=== PATIENT | female | born 1995 | race Hispanic/Latino ===

== ENCOUNTER 2017-11-17 06:03 | Inpatient (IN) | payer OTHER ==
[~2017-11-17] VITALS: Ht 160 cm; Wt 63.5 kg
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
[2017-11-17 06:30] LABS: ABSOLUTE BASOPHIL COUNT 0 /CUMM (0.0-0.2); ABSOLUTE EOSINOPHIL COUNT 0 /CUMM (0.0-0.7); ABSOLUTE LYMPH COUNT 1.6 /CUMM (1.2-3.4); ABSOLUTE MONOCYTE COUNT 0.5 /CUMM (0.10-0.60); BASOPHIL % 0.5 % (0.0-2.0); EOSINOPHIL % 0.3 % (0-5); GRANULOCYTE % 78.6 % (42.2-75.2); MEAN CORPUSCULAR HGB 28.7 PG (27.0-31.0); MEAN CORPUSCULAR HGB CONC 33.8 G/DL (33.0-37.0); MEAN CORPUSCULAR VOLUME 85.1 FL (81.0-99.0); MEAN PLATELET VOLUME 8.3 FL (7.4-10.4); PLATELET COUNT 322 /CUMM (130-400); RBC DISTRIBUTION WIDTH 14.6 % (11.5-14.5); RED BLOOD CELL CT 4.71 /CUMM (4.20-5.40); WHITE BLOOD CELL COUNT 10.1 /CUMM (4.8-10.8)
--- NOTE | 2017-11-17 11:09 | CT SCAN REPORT ---
EXAMINATION: CT HEAD WITHOUT CONTRAST CLINICAL INFORMATION: Altered mental status COMPARISON: None. TECHNIQUE: Contiguous axial imaging was performed from the skull base to vertex without intravenous contrast. DLP: 600 mGy-cm. FINDINGS: There is no evidence of acute intracranial hemorrhage or territorial infarction. No abnormal mass effect or midline shift is seen. Todd to white matter differentiation is well preserved. No extra-axial fluid collections are identified. No hydrocephalus. No significant volume loss. There is no abnormal attenuation within the brain parenchyma. The osseous structures and soft tissues are normal. The mastoid air cells and visualized portions of the paranasal sinuses are well aerated. IMPRESSION: No acute intracranial pathology.
--- NOTE | 2017-11-17 16:20 | ED PSYCH CRISIS CONSULTATION ---
See Addendum Crisis Consult Basic Assessment Date of Consult: 11/17/17 Responsible Person/Accompanied By: with family Insurance Authorization: Insurance #1: Insurance name: SELF-PAY Phone number: Policy number: Group number: Authorization number: ED Provider: Patient's ED Provider: Adolfo Palma MD Primary Care Physician: Patient's PCP: Patient Has No Primary Care Dr PCP's Phone Number: Current Psychiatrist: None Chief Complaint: Altered Mental Status Patient's Quote: "they are not my real parents" Present Illness: Pt is a 22 year old female arriving to ER for "altered mental status", pt was oriented to time and date, she did not know what hospital she was in. 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 In evaluating the pt she offers "these are not my real parents, and I'm scared". She becomes tearful, she will not answer many more questions, she has a strong gaze in which she appears to be looking through you. She will not answer any questions regarding mental health or hearing voices, hallucinations or whether she wants to harm herself. She does state she is "sick of all these fake people at work". Pt has been employed for over a year at a local [employer] in [place], she recently met a boy and they began dating, although pt told her sister he recently cheated on her. They began smoking cannabis the family refers to it as "gorilla", this may be what lead her to become paranoid, and guarded, along with possibly having a first psychotic break. I explained the inpatient hospitialization would benefit her as a means to hash this out thouroughly. The evaluation continued with her sister and Mother who state this is not how Christelle usually acts, and that last night and this morning she has been acting different, becoming aggressive, stating "you are all fake, I have a 3rd eye and can see what you are thinking, and I have superpowers", her sister also states she had been asking her "are you on my side?, do you think my boyfriend is on my side?". Pt will be placed on a PEC, as she is gravely disabled at this point. Family was made aware. Completed C-SSRS in chart/ for reference. Patient's Address: [address] [place] [address] Other Phone Number: Who Do You Live With? Family Family/Informants Interviewed: Spoke with family, they are concerned for her saftey/ state of mind Allergies - Coded Allergies: No Known Allergies (11/17/17) Current Medications - No Known Home Medications Laboratory Results: Laboratory Tests 11/17/17 0910: Lactic Acid 0.7 11/17/17 0719: Urine Opiates Screen < 100, Methadone Screen < 40, Barbiturate Screen < 60, Ur Phencyclidine Scrn < 6.00, Amphetamines Screen < 100, U Benzodiazepines Scrn < 85, Urine Cocaine Screen < 50, Urine Cannabis Screen > 80.00 H, Urine Color STRAW, Urine Clarity CLEAR, Urine pH 6.0, Ur Specific [place] 1.010, Urine Protein NEG, Urine Ketones 15 H, Urine Nitrite NEG, Urine Bilirubin NEG, Urine Urobilinogen 0.2, Ur Leukocyte Esterase NEG, Ur Microscopic EXAM NOT REQUIRED, Urine Hemoglobin NEG, Urine Glucose NEG 11/17/17 0620: Anion Gap 19 H, Estimated GFR > 60, BUN/Creatinine Ratio 6.7 L, Glucose 139 H , Lactic Acid 4.3 H, Calcium 9.8, Total Bilirubin 0.8, AST 31, ALT 26, Alkaline Phosphatase 79, Creatine Kinase 369 H, Total Protein 8.1, Albumin 4.9, Globulin 3.2, Albumin/Globulin Ratio 1.5, TSH &T3 &Free T4 Intrp 1.480, Total Beta HCG NEGATIVE, CBC w Diff NO MAN DIFF REQ, RBC 4.71, MCV 85.1, MCH 28.7, MCHC 33.8, RDW 14.6 H, MPV 8.3, Gran % 78.6 H, Lymphocytes % 15.4 L, Monocytes % 5.2, Eosinophils % 0.3, Basophils % 0.5, Absolute Granulocytes 8.0 H, Absolute Lymphocytes 1.6, Absolute Monocytes 0.5, Absolute Eosinophils 0, Absolute Basophils 0, Serum Alcohol < 10.0 Microbiology 11/18 619 BLOOD: Blood Culture - RECD 11/17 605 BLOOD: Blood Culture - ORD Past History Past Medical History Neurological: NONE EENT: NONE Cardiovascular: NONE Respiratory: NONE Gastrointestinal: NONE Hepatic: NONE Renal: NONE Musculoskeletal: NONE Psychiatric: NONE Endocrine: NONE Blood Disorders: NONE Cancer(s): NONE SHIP LINER/Reproductive: NONE Past Surgical History Surgical History: non-contributory Psychosocial History Strengths/Capabilities: employed, family Psychiatric Treatment History Psych Treatment Psychiatric Treatment No Diagnosis by History: "tricotillmania" "depression" Substance Use/Abuse History Drug Use/Abuse Substances Used/Abused Yes Substance Used/Abused Marijuana First Use 20 Last Used 20 How much used/taken unknown How often unknown For how long few months Route of use inhale Substance Abuse Treatment Substance Abuse Treatment Past Substance Abuse [place] No Current Mental Status Mental Status Orientation: Confused Affect: Blunted, Depressed, Inappropriate Speech: Delayed, Evasive Neuro-vegetative: Helpless, Sleep Disturbance Appearance Appearance- Dress/Hygiene: unkempt Behaviors Thought Process: Disorganized Thought Content: Paranoid Memory: WNL Insight: Poor SI/HI Risk Assessment Past Suicidal Ideation/Attempts No Current Suicidal Ideation/Att No Past Homicidal Ideation/Att: No Current Homicidal Ideation/Attempts No Degree of Intent: will not answer Gravely Disabled: Inability, Poor Judgment Risk Factors: age (under 24/over 65), high anxiety/distress, poor impulse control Lethality Ratin PTSD Checklist PTSD Done? 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 Departure Disposition Psych Medical Clearance Date: 11/17/17 Medically Cleared at: 1630 Time Started: 1630 Time Ended: 173 Psychiatrist Consulted: Melody Mejia MD Date Disposition Established: 11/17/17 Time Disposition Established: 1629 Plan for Disposition - Modality: Inpatient Psychiatry Facility: [facility] Follow-up Appt Date: 11/17/17 Follow-Up Appt Time: 1652 Contact: [facility]PS Telephone: [phone] Rationale for Disposition: Pt is having psychotic symptomology, and has not had any significant treatment in the past, she is unsafe and lacking judgement. Dr. Mejia to admit pt to [facility] for stability. Type of IP Admission: PEC Referrals Patient Has No Primary Care Dr (PCP/Family)
--- NOTE | 2017-11-17 17:02 | IP CRISIS DIAG ASSESS PSYCH ---
Diagnostic Assessment Basic Assessment Insurance Authorization: Insurance #1: Insurance name: SELF-PAY Phone number: Policy number: Group number: Authorization number: [id number] Primary Care Physician: Patient's PCP: Patient Has No Primary Care Dr PCP's Phone Number: Patient's Quote: "they are not my real parents" Present Illness: Pt is a 22 year old female arriving to ER for "altered mental status", pt was oriented to time and date, she did not know what hospital she was in. 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 In evaluating the pt she offers "these are not my real parents, and I'm scared". She becomes tearful, she will not answer many more questions, she has a strong gaze in which she appears to be looking through you. She will not answer any questions regarding mental health or hearing voices, hallucinations or whether she wants to harm herself. She does state she is "sick of all these fake people at work". Pt has been employed for over a year at a [employer] in [place], she recently met a boy and they began dating, although pt told her sister he recently cheated on her. They began smoking cannabis the family refers to it as "gorilla", this may be what lead her to become paranoid, and guarded, along with possibly having a first psychotic break. I explained the inpatient hospitialization would benefit her as a means to hash this out thouroughly. The evaluation continued with her sister and Mother who state this is not how Christelle usually acts, and that last night and this morning she has been acting different, becoming aggressive, stating "you are all fake, I have a 3rd eye and can see what you are thinking, and I have superpowers", her sister also states she had been asking her "are you on my side?, do you think my boyfriend is on my side?". Pt will be placed on a PEC, as she is gravely disabled at this point. Family was made aware. Completed C-SSRS in chart/ for reference. Patient's Address: [address] [place] [address] [place] [address] Other Phone Number: Who Do You Live With? Family Feel Safe Where You Live? No Feel Safe in Your Relationship No If No, Please Elaborate: "everyone is fake" Marital Status: single Do You Have Children? No Primary Language? Ugandan Language(s) Spoken At Home: Tajik, Ugandan Family/Informants Interviewed: Spoke with family, they are concerned for her saftey/ state of mind Allergies - Coded Allergies: No Known Allergies (11/17/17) Current Medications - No Known Home Medications Consequences of Psych Med Use: n/a Lab Results: Laboratory Tests 11/17/17 0910: Lactic Acid 0.7 11/17/17 0719: Urine Opiates Screen < 100, Methadone Screen < 40, Barbiturate Screen < 60, Ur Phencyclidine Scrn < 6.00, Amphetamines Screen < 100, U Benzodiazepines Scrn < 85, Urine Cocaine Screen < 50, Urine Cannabis Screen > 80.00 H, Urine Color STRAW, Urine Clarity CLEAR, Urine pH 6.0, Ur Specific [place] 1.010, Urine Protein NEG, Urine Ketones 15 H, Urine Nitrite NEG, Urine Bilirubin NEG, Urine Urobilinogen 0.2, Ur Leukocyte Esterase NEG, Ur Microscopic EXAM NOT REQUIRED, Urine Hemoglobin NEG, Urine Glucose NEG 11/17/17 06: Anion Gap 19 H, Estimated GFR > 60, BUN/Creatinine Ratio 6.7 L, Glucose 139 H , Lactic Acid 4.3 H, Calcium 9.8, Total Bilirubin 0.8, AST 31, ALT 26, Alkaline Phosphatase 79, Creatine Kinase 369 H, Total Protein 8.1, Albumin 4.9, Globulin 3.2, Albumin/Globulin Ratio 1.5, TSH &T3 &Free T4 Intrp 1.480, Total Beta HCG NEGATIVE, CBC w Diff NO MAN DIFF REQ, RBC 4.71, MCV 85.1, MCH 28.7, MCHC 33.8, RDW 14.6 H, MPV 8.3, Gran % 78.6 H, Lymphocytes % 15.4 L, Monocytes % 5.2, Eosinophils % 0.3, Basophils % 0.5, Absolute Granulocytes 8.0 H, Absolute Lymphocytes 1.6, Absolute Monocytes 0.5, Absolute Eosinophils 0, Absolute Basophils 0, Serum Alcohol < 10.0 Microbiology 11/18 619 BLOOD: Blood Culture - RECD 07/03 0606 BLOOD: Blood Culture - ORD Toxicology Screen Completed? Yes Results: positive Symptoms of Use: unsure Past History Past Medical History Medical History: None/Denies Past Surgical History Surgical History none Abuse/Trauma History Trauma History/Current Trauma: unknown Legal History Current Legal Status: none Psychosocial History Strengths/Capabilities: employed, family Psychiatric Treatment History Psych Treatment Psychiatric Treatment No Diagnosis by History: "tricotillmania" "depression" Risk Factors: age (under 24/over 65), high anxiety/distress, poor impulse control Substance Use/Abuse History Drug Use/Abuse minimum 12mo Hx Substances Used/Abused Yes Substance Used/Abused Marijuana First Use 20 Last Used 20 How much used/taken unknown How often unknown For how long few months Route of use inhale Substance Abuse Treatment Substance Abuse Treatment Past Substance Abuse [place] No Sexual History Sexual Orientation Heterosexual Sexual Concerns: unknown/ bf may have syphillis and cheated on her per sister Education History Highest Level of Education: high school/GED Preferred Learning Style: visual Current Mental Status Mental Status Orientation: Confused Affect: Blunted, Depressed, Inappropriate Speech: Delayed, Evasive Neuro-vegetative: Helpless, Sleep Disturbance Appearance Appearance- Dress/Hygiene: unkempt Behaviors Thought Process: Disorganized Thought Content: Paranoid Memory: WNL Insight: Poor SI/HI Risk Assessment - Minimum 6mo History- Past Suicidal Ideation/Attempts No Current Suicidal Ideation/Att No Past Homicidal Ideation/Att: No Current Homicidal Ideation/Attempts No Degree of Intent: will not answer Danger To: Others Gravely Disabled: Inability, Poor Judgment Risk Factors: age (under 24/over 65), high anxiety/distress, poor impulse control Lethality Ratin Needs/Init [place] Plan/Goals: Safety inpatient milieu med evaluation individual, group, family treatment AUDIT-C Questionnaire: AUDIT-C Questionnaire: Response Value ETOH use in the past year Never 0 # drinks typical/day Doesn't Drink 0 6 or > drinks per occasion Never 0 Total 0 DSM5/PS Stressors/Medical Prob Diagnosis' (DSM 5, Stressors, Medical): 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
[2017-11-17 21:42] VITALS: BP 112/55
[2017-11-18 09:10] VITALS: BP 141/63
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
--- NOTE | 2017-11-18 11:39 | SOCIAL WORKER PROG NOTE PSYCH ---
Social Work Progress Note Progress Note SW attempted to complete pt psycho-social hx but unable at this time due to pt continued delusional thought process and inability to answer questions. Will attempt again when clearer.
[2017-11-18 16:08] VITALS: BP 125/90
[2017-11-18 19:41] VITALS: BP 132/70
[2017-11-19 07:43] VITALS: BP 124/71
--- NOTE | 2017-11-19 10:04 | History & Physical ---
General Information and HPI MD Statement: I have seen and personally examined MARIZOL MOELLER and documented this H&P. The patient is a 22 year old F who presented with a patient stated chief complaint of "you are not my real parents". Source of Information: family Exam Limitations: unable to give history History of Present Illness: 22-year-old female has had increased delusions and aggressive behavior over 2 days. She has been pacing not sleeping feeling paranoid about her boyfriend and family seems psychotic. 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 Home ETOH Use: UNKNOWN Illicit Drug Use: marijuana Review of Systems Review of Systems Constitutional: Reports: see HPI. Exam & Diagnostic Data Last 24 Hrs of Vital Signs/I&O Vital Signs Date Time Temp Pulse Resp B/P B/P Pulse O2 O2 Flow FiO2 Mean Ox Delivery Rate 11/19 0643 97.1 92 124/71 / 1941 98.6 92 132/70 / 1608 96 125/90 Physical Exam General Appearance Alert, Oriented X3, No Acute Distress Skin No Breakdown HEENT PERRLA, EOMI, Mucous Membr. moist/pink Neck Supple, No JVD, No thryomegaly, +2 Carotid Pulse wo Bruit, No LAD Lymphatic Axillary nl, Cervical nl Cardiovascular Regular Rate, No Murmurs Lungs Clear to Auscultation, Normal Air Movement Abdomen Normal Bowel Sounds, Soft, No Tenderness Neurological Exam Findings: Normal Gait, Normal Speech, Strength at 5/5 X4 Ext, Normal Tone, Sensation Intact, Cranial Nerves 3-12 NL, Reflexes 2+ Cranial Nerves II through XII: Intact Extremities No Cyanosis, No Edema, Normal Pulses Vascular Normal Pulses, Pulses Symmetrical Last 24 Hrs of Labs/Bryant: Laboratory Tests 11/19/17 0635: Hemoglobin A1c 5.3, Triglycerides 45, Cholesterol 144, LDL Cholesterol, Calc 73, HDL Cholesterol 62 H, Cholesterol/HDL Ratio 2 11/18/17 0615: Glucose 62 L, Vitamin B12 481, Folate > 20.0 H, TSH 0.717, Free T4 1.69, Thyroxine (T4) 9.3 Laboratory Tests 11/19/17 0635: Hemoglobin A1c 5.3, Triglycerides 45, Cholesterol 144, LDL Cholesterol, Calc 73, HDL Cholesterol 62 H, Cholesterol/HDL Ratio 2 Assessment/Plan As Ranked By This Provider Problem List: 1. Acute delirium Miscellaneous Miscellaneous Documentation Attending Case Discussed With: Roberto WINSTON,Melody Primary Care Physician: Patient Has No Primary Care Dr Patient sees these Specialists Psychiatry Level of Patient Care: Hao Consults Needed: Consulting Specialty: Psychiatry Consulting Physician: Melody Mejia MD Reason for Consult: delirium,psychosis
[2017-11-19 12:03] VITALS: BP 149/85
--- NOTE | 2017-11-19 13:07 | CP SOUTH PROGRESS NOTE PSYCH ---
Psych (Inpt) Progress Note Progress Note Laboratory Tests 11/19 06 Chemistry Hemoglobin A1c (4.2 - 5.8 %) 5.3 Triglycerides (<150 mg/dL) 45 Cholesterol (<200 MG/DL) 144 LDL Cholesterol, Calc (65 - 129 mg/dL) 73 HDL Cholesterol (40 - 60 mg/dL) 62 H Cholesterol/HDL Ratio (0.00 - 4.23 %) 2 Vital Signs Date Time Temp Pulse Resp B/P B/P Pulse O2 O2 Flow FiO2 Mean Ox Delivery Rate 11/19 1203 108 149/85 11/19 0743 97.1 92 124/71 11/18 1941 98.6 92 132/70 11/18 1608 96 125/90 Mental Status Examination: The patient was alert and oriented to time, place, and person. She was talkative with mild pressure. She reported that she has been having racing thoughts. She was calm and cooperative. She showed normal psychomotor activity , no agitation, and no psychomotor retardation She denied feeling hopeless or worthless, she denied wishing and denied thoughts of suicide. She denied having violent thoughts or thoughts of homicide. She denied hallucinations today or yesterday but did acknowledge that she was having some auditory hallucinations before her arrival to the emergency room. She continues to have and posterior delusions/Capgras (thinking that her mother, her sister, and her father were replaced by different versions of Amanda Thomas, not a celebrity but a Amanda Thomas that works with patient) She also has a thought disorder and having difficulty organizing her thoughts. It is also difficult to follow her train of thought. grossly intact, has some recollection of where she was brought to the hospital, personal history Assessment: A 22 year old woman with recent onset bizarre delusions, behavior; aggression; in context of drug use vs first psychotic episode. She is referential, illogical and paranoid. She is responsive to redirection and has not been violent or aggressive on the unit, and though does not need a sitter at this time, will likely need reality testing and redirection. 

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
--- NOTE | 2017-11-19 15:50 | SOCIAL WORKER PROG NOTE PSYCH ---
Social Work Progress Note Progress Note I Richardson Sanchez POWDER COATER international manager met with Christelle this afternoon to complete her social history, She was in bed but was cooperative, calm and engaged when meeting. Christelle is still displaying delusional thinking as she believes she was kidnapped. She expressed not trusting her family and feels unsafe around them. She called her mom a "witch." She was focused on seeing her boyfriend and leaving the hospital. When asked about doing follow up with a mental health service like [facility] she was agreeable to it but wanted something in [place] because she has no intention to live with her parents. I explored insurance coverage with her which she doesn't have any and claims she was denied when she applied. The above information was documented by Richardson Sanchez POWDER COATER international manager and signed by Yina Alfaro LCSW.
[2017-11-19 19:53] VITALS: BP 137/81
[2017-11-20 08:08] VITALS: BP 158/71
[2017-11-20 12:45] VITALS: BP 142/80
--- NOTE | 2017-11-20 13:37 | CP SOUTH PROGRESS NOTE PSYCH ---
Psych (Inpt) Progress Note Progress Note Mental Status Examination: The patient was alert and oriented to time, place, and person. She was talkative with mild pressure. She reported that she has been having racing thoughts. She was he was anxious and perseverating about that "she does not have syphilis." She showed some agitation this morning around 8:30 AM She denied feeling hopeless or worthless, denied wishing and denied thoughts of suicide. She denied having violent thoughts or thoughts of homicide. She denied hallucinations since her arrival to the unit (acknowledged that she was having some auditory hallucinations before her arrival to the emergency room). She continues to have imposter delusions/Capgras (thinking that her mother, her sister, and her father were replaced by different versions of Amanda Thomas, not the celebrity but a Amanda Thomas who works with patient). She also has a thought disorder and having difficulty organizing her thoughts. It is also difficult to follow her train of thought. Assessment: Christelle is a 22-year old with recent onset of delusions, behavior; aggression; in context of drug use vs first psychotic episode. She was illogical and paranoid. Since her admission to the inpatient psychiatric unit on 11/17/2017, she has continues to continue to have delusions of impostors replacing her mother father and sister, perseverating about syphilis perseverating about Amanda Thomas coworker was inhabiting her mother's body and may be also had father and sister. 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
--- NOTE | 2017-11-20 13:56 | SOCIAL WORKER PROG NOTE PSYCH ---
Social Work Progress Note Progress Note I Richardson Sanchez met with Christelle this afternoon to check in. She was engaging with peers on the unit playing cards prior to meeting with her. She reports being in a good mood, sleeping and eating well. Christelle and I had a discussion about who came to visit her. The visitors were her boyfriend, boyfriend's family , friends, and her parents that she still claims are not her parents. She believes her parents are being and acting fake. I inquired further about when she applied for insurance and was denied she said it was earlier this year and her parents applied not her. She continues to have delusions about her parents. She is unsure why the paper her boyfriend gave her with his number on it disappears. She suspects nursing took it and can not understand why else it would be missing. 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 I explored more about what brought her in from her perspective and she believes she drank too much water, smoked some, weed and her parents not being her real parent led her here. She expressed the weed to be a method to help her cope with stressors. I explored to see if she used other coping skills but she has not. She report socializing and going out with friends as something she enjoys doing. I asked whether she thought there was a down side to using weed which she did not. When asked who she goes to for support she answered her boyfriend. She was not willing to sign a release for her parents. The above information is written by Richardson Sanchez HIV NURSE Bacteriologist Industrial and signed by Yina Alfaro TRANSMISSION BUILDER.
[2017-11-20 15:38] VITALS: BP 147/61
--- NOTE | 2017-11-20 16:39 | SOCIAL WORKER PROG NOTE PSYCH ---
Social Work Progress Note Progress Note Spoke to Inga of [facility] for concurrent inpatient authorization. [facility] ID# [id number] Authorization # [id number] 11/20-11/23 Review Date 11/24
--- NOTE | 2017-11-20 16:53 | SOCIAL WORKER PROG NOTE PSYCH ---
Social Work Progress Note Progress Note Introduced myself to Christelle who had requested to speak with me. She went on to talk about how the people coming to see her aren't who they say they are. She stated she was adopted and her parents aren't her parents. She was also paranoid about some of the staff here not being who they say they are. She believes everyone, including me is conspiring against her. She thinks we all know something about what's going on at [facility] and we aren't telling her. I told her that I am not aware of anything. She didn't believe me. She also kept talking about not having Syphilis and people are thinking or saying she does. She believed that people in the room were listening to what was going on through the bueno and devices in the room. I tried to focus on redirecting her attention to help her feel safe. She stated she doesn't want to go to her room and she wants to leave the hospital. The only person she would agree to have in for a meeting was her boyfriend Osiel. She signed a release for him. She couldn't remember his phone number. I told her she wasn't leaving today and that we needed to have a family meeting. She got a little irritated about that, but was redirectable.
[2017-11-20 19:36] VITALS: BP 136/77
[2017-11-21 09:54] VITALS: BP 119/73
--- NOTE | 2017-11-21 09:56 | CP SOUTH PROGRESS NOTE PSYCH ---
Psych (Inpt) Progress Note Progress Note Laboratory Tests 11/21 Serology RPR Titer/FTA Pending Vital Signs Date Time Temp Pulse B/P O2 FiO2 11/21 0954 98.6 96 119/73 11/20 1936 98.5 100 136/77 11/20 1538 108 147/61 11/20 1245 100 142/80 Mental Status Examination: Patient remains paranoid and thinking that everybody is lying to her, she continues also to experience the imposter delusions. I spoke to her mom and her sister while she was in the room with me. The patient first attempted to interpret for her mother than her sister joined the conversation and I was able to speak to her since she speaks very good Barb[place] The patient was alert and oriented to time, place, and person. Although she denied hallucinations since her arrival to the unit, she seemed to be responding to internal stimuli during the interview She continues to have imposter delusions/Capgras (thinking that her mother, her sister, and her father were replaced by different versions of Amanda Thomas, not the celebrity but a Amanda Thomas who works with patient). She also has a thought disorder and having difficulty organizing her thoughts. It is also difficult to follow her train of thought. She denied feeling hopeless or worthless, denied wishing , denied thoughts of suicide. She denied having violent thoughts or thoughts of homicide. After the morning interview which lasted 20 minutes, the patient insisted on talking to me every single time she saw me on the unit and then entered the office uninvited and refused to leave and security had to be called in to assist getting her out of the office Assessment: Christelle is a 22-year old with recent onset of delusions Since her admission to the inpatient psychiatric unit on 11/17/2017, she continues to have delusions of impostors replacing her mother father and sister, perseverating about syphilis perseverating about Amanda Thomas coworker was inhabiting her mother's body and may be also had father and sister. Patient also continues to be paranoid pretty much about everybody accusing me of the nurses of lying to her and hiding something Diagnoses: Unspecified psychotic disorder Rule out substance induced psychotic disorder r/o schizophreniform Treatment Plan: Increase risperidone to 3 mg at bedtime Continue all other medications unchanged
[2017-11-21 12:03] VITALS: BP 151/76
[2017-11-21 15:52] VITALS: BP 149/85
[2017-11-21 19:04] VITALS: BP 135/81
[2017-11-22 08:15] VITALS: BP 151/73
--- NOTE | 2017-11-22 08:18 | CP SOUTH PROGRESS NOTE PSYCH ---
Psych (Inpt) Progress Note Progress Note Vital Signs Date Time Temp Pulse B/P 11/22 0815 97.3 88 151/73 11/21 1904 97.5 94 135/81 11/21 1552 98 149/85 Mental Status Examination: Patient remains paranoid but much less than yesterday. For example, she did not accuse me of lying to her and she did not have any ideas of reference during the interview. She did not mention anything about the nurses lying to her today, which was the theme yesterday. Her delusions regarding her family being replaced by imposters are less intense as they have changed to strong suspicions, which is also a change from yesterday where she was convinced 100% that her family members were replaced by an impostor cold Amanda Thomas Also today she did not bring up syphilis and she reported that she knows that she does not have syphilis. The patient was alert and oriented to time, place, and person. She continues to deny hallucinations She also has a thought disorder and having difficulty organizing her thoughts. She denied feeling hopeless or worthless, denied wishing , denied thoughts of suicide. She denied having violent thoughts or thoughts of homicide. Assessment: Christelle is a 22-year old with recent onset of delusions of impostors replacing her mother father and sister. Today, the patient is showing an improvement in his delusions as evidenced by her saying that she is not 100% sure today that her family was replaced by imposters but that she is suspicious that there may have been. This is a relative improvement compared to yesterday. She is also a little bit more coherent. And she is no longer perseverating or delusional about syphilis. She is also less paranoid about me and the staff on the unit. She is showing good better behavioral control Diagnoses: Unspecified psychotic disorder Rule out substance induced psychotic disorder r/o schizophreniform disorder Treatment Plan: Continue risperidone 3 mg at bedtime Continue all other medications unchanged r/o schizophreniform Treatment Plan: Increase risperidone to 3 mg at bedtime Continue all other medications unchanged
[2017-11-22 12:11] VITALS: BP 134/80
[2017-11-22 15:59] VITALS: BP 136/69
[2017-11-23 07:55] VITALS: BP 141/81
--- NOTE | 2017-11-23 08:51 | CP SOUTH PROGRESS NOTE PSYCH ---
Psych (Inpt) Progress Note Progress Note Laboratory Tests 11/23 0635 Sodium (137 - 145 mmol/L) 141 Potassium (3.5 - 5.1 mmol/L) 4.0 Chloride (98 - 107 mmol/L) 99 Carbon Dioxide (22 - 30 mmol/L) 25 Anion Gap (5 - 16) 17 H BUN (7 - 17 mg/dL) 7 Creatinine (0.5 - 1.0 mg/dL) 0.6 Estimated GFR (>60 ml/min) > 60 BUN/Creatinine Ratio (7 - 25 %) 11.7 Vital Signs Date Time Temp Pulse Resp B/P B/P Pulse O2 O2 Flow FiO2 Mean Ox Delivery Rate 11/23 1218 104 133/74 11/23 0755 97.6 98 141/81 11/22 1559 108 136/69 Mental Status Examination: The patient showed some evidence of akathisia in her lower extremities during the interview, she also looked restless, she reported feeling anxious The patient was alert and oriented to time, place, and person. less paranoid about her parents, she says she misses home and her family imposter delusions are now just suspicions, continues to deny hallucinations more organized/less thought disordered, denied feeling hopeless or worthless, denied wishing , denied thoughts of suicide. She denied having violent thoughts or thoughts of homicide. Assessment: gradual improvement in her delusions She is showing better behavioral control No thoughts of suicide, no thoughts of violence and no thoughts of homicide Diagnoses: Unspecified psychotic disorder Rule out substance induced psychotic disorder r/o schizophreniform disorder Treatment Plan: Reduce risperidone to 2 mg at bedtime due to akathisia Patient encouraged to use the Ativan as needed to manage both her anxiety as well as akathisia
[2017-11-23 12:18] VITALS: BP 133/74
--- NOTE | 2017-11-23 17:13 | SOCIAL WORKER PROG NOTE PSYCH ---
Social Work Progress Note Progress Note Christelle apparently called her family in for family meeting today without notifying us. Her parents and her Sister showed up on the unit this afternoon. I asked Christelle to sign a release for her family, which she did. She got a little paranoid about her Mother being on the release and stated she doesn't trust her because "she changes" and we'll see how she is today when I see her. Christelle's parents are monolingual [place] Citizen, so her Sister Richardson had to translate. I explained that normally I reach out to family to schedule a family meeting, but due to not arranging this myself I was unable to get the [employer] translation system. Richardson interpreted during the meeting. We explained that Christelle is continuing to have some thoughts that her family is not really her family, particularly suspicious of her Mom. During the meeting Christelle acknowledged that her family was her family, but believed that her Mother was a witch and that she does bad things. Family hx was gathered by Dr. Cruz during the meeting. We confirmed it was a normal and that developementally she was fine. There is no hx of mental health or suicides in the family. Cannabis use started around High School according to her Sister and that use was not that heavy. During the meeting Christelle had a delusional belief that the doctor was her boss at [facility]'s named "Vinayak." When challenged by her Sister who stated Vinayak was black, she said "people can change." She also thought that I was to him. When the meeting ended, Christelle thought she was going to be able to go home. We explained that she was not going home today. She got very tearful and refused to leave the office for some time. She was coaxed into leaving eventually after about 15 minutes. She thought her family was paid off by someone and that's why she couldn't leave today.
[2017-11-23 20:01] VITALS: BP 134/74
[2017-11-24 07:50] VITALS: BP 140/82
--- NOTE | 2017-11-24 08:57 | CP SOUTH PROGRESS NOTE PSYCH ---
Psych (Inpt) Progress Note Progress Note Treatment team (JANETH, RN, Group and Activities Therapist, and psychiatrist) discussed Pt.'s progress, treatment plan, and aftercare plans. Vital Signs Date Time Temp Pulse B/P 11/24 0750 97.7 132 140/82 Mental Status Examination: Christelle denied feeling hopeless or worthless, denied wishing , and denied thoughts of suicide. She denied having violent thoughts or thoughts of homicide. Christelle continues to have paranoid delusions about different people being replaced by imposters. continues to deny hallucinations more coherent /organized thoughts (despite the delusional content) did not have akathisia today, she reported feeling anxious The patient was alert and oriented to time, place, and person. Assessment: gradual improvement in her delusions She is showing better behavioral control No thoughts of suicide, no thoughts of violence and no thoughts of homicide Diagnoses: Unspecified psychotic disorder Rule out substance induced psychotic disorder r/o schizophreniform disorder Treatment Plan: Continue same treatment plan Patient encouraged to use the Ativan as needed to manage both her anxiety as well as akathisia
[2017-11-24 12:26] VITALS: BP 142/79
--- NOTE | 2017-11-24 15:24 | SOCIAL WORKER PROG NOTE PSYCH ---
See Addendum Social Work Progress Note Progress Note Christelle met with me this afternoon. She told me that she is with a big smile. I asked how she knew this information? She said her and her boyfriend found out at "the place." I asked what place? She couldn't say and then said she just knew because she senses it. I told her she could have a test. She refused. I told it would be best if it could be confirmed with a test. She still refused and said "I'm happy." I asked if she was going to tell her family this information? She said she planned to when she saw them tonladarius. She also continues to talk about not telling anyone about "what we do here." I asked what she was referring to? She didn't say. She asked me if I was to Rich? I told her I was not. She stated she was appreciative of everything we have done for her here. She then went to spirituality group. Christelle's test was negative in the ER. Informed nursing that she may inform her family of a preganancy.
[2017-11-24 16:10] VITALS: BP 132/78
--- NOTE | 2017-11-24 16:26 | SOCIAL WORKER PROG NOTE PSYCH ---
Social Work Progress Note Progress Note Determination Status: PENDED The services requested require additional review. You will be contacted regarding the status of this request if further information is needed. An authorization decision will be made within the required timeframes and details of that decision may be found under the member's authorization history. Member Name Member ID Member Subscriber Name Subscriber ID MARIZOL MOELLER [id number] MARIZOL MOELLER [id number] Pended Authorization # Client Authorization # Type of Request [id number] CONCURRENT Date of Admission/ Start of Services Requested From Submission Date 11/17/2017 11/24/2017 11/24/2017 Level of Service Type of Service Level of Care Type of Care INPATIENT/HLOC [facility]patient [facility] Reason Code P76 Provider Name & Address Provider ID Provider Alternate ID NPI # for Authorization MARGIE LUKE [id number] N/A [address] [facility] [id number] Message P76 Attached Documents There are no documents attached with this Authorization Request Document Title Document Description
[2017-11-24 20:21] VITALS: BP 130/65
[2017-11-25 08:15] VITALS: BP 147/75
--- NOTE | 2017-11-25 08:21 | CP SOUTH PROGRESS NOTE PSYCH ---
Psych (Inpt) Progress Note Progress Note Treatment team (JANETH, RN, Group and Activities Therapist, and psychiatrist) discussed pt.'s progress, treatment plan, and aftercare plans. Vital Signs Date Time Temp Pulse B/P 11/25 1215 98 138/77 11/25 0815 96.7 102 147/75 11/24 2020 98.8 104 130/65 Mental Status Examination: Christelle continues to have paranoid delusions about different people being replaced by imposters. Today was the first time that she acknowledged the presence of hallucinations, she acknowledged hearing the voice of her mom. This morning she was obsessing about being then in the afternoon she did not talk about it anymore. Christelle denied feeling hopeless or worthless, denied wishing , and denied thoughts of suicide. She denied having violent thoughts or thoughts of homicide. did not have akathisia today, she reported feeling anxious The patient was alert and oriented to time, place, and person. Assessment: The patient continues to have delusions and today she acknowledged for the first time having audio hallucinations hearing the voice of mom She is showing better behavioral control No thoughts of suicide, no thoughts of violence and no thoughts of homicide Diagnoses: Unspecified psychotic disorder Rule out substance induced psychotic disorder r/o schizophreniform disorder Treatment Plan: Continue same treatment plan Lorazepam 1 MG AT BEDTIME 11/23 2100 AC 11/24 Lorazepam 1 MG Q4P PRN 11/23 1500 AC 11/24 Risperidone 1 MG DAILY 11/24 09 AC 11/25 Risperidone 2 MG AT BEDTIME
[2017-11-25 12:15] VITALS: BP 138/77
[2017-11-25 16:01] VITALS: BP 139/65
--- NOTE | 2017-11-25 17:12 | SOCIAL WORKER PROG NOTE PSYCH ---
Social Work Progress Note Progress Note Christelle has been in groups today and social with peers. She is still under the belief that she is . She also stopped our conversation several times to ask me if I was Dr. Cruz's and if I was her friend Aleja. I told her this is one of our concerns and one of the reasons she is not ready to be discharged. She talked about her Mother quite a bit during our discussion. She believes her Mother needs to be on this unit and not her. She had some nice things to say about her Mom, but also shared alot of negative thoughts. She continues to think she's a witch and does bad things. She said her Mother has emotional problems and talks about killing herself when at home, but in public she presents differently. It also sounded like she thinks her Mom is having an affair. She mentioned a boyfriend that her Mother treats badly. She doesn't want these things disclosed to family. I asked how she felt about visiting with family? She said she wants to see her Mom and is okay with the idea that she needs to be here right now. She continues to say how much she appreciates the help and the kind staff here. Her family arrived around 4:45 for a visit. She approached me and said "should I tell them." I told her she should tell her family anything she feels comfortable with. She asked to speak with me again privately. I told her I couldn't meet right now and to have a nice visit with her family. She was suspicious of my actions and statements.
[2017-11-25 19:57] VITALS: BP 108/65
--- NOTE | 2017-11-26 07:22 | CP SOUTH PROGRESS NOTE PSYCH ---
Psych (Inpt) Progress Note Progress Note Treatment team (JANETH, RN, Group and Activities Therapist, and psychiatrist) discussed pt.'s progress, treatment plan, and aftercare plans. Mental Status & Behavior: Christelle continues to have paranoid delusions, continues to believe that people are "mean" and she thinks she knows what people are thinking audio hallucinations, she acknowledged hearing the voice of her mom. No delusions about today Christelle denied feeling hopeless or worthless, denied wishing , and denied thoughts of suicide. She denied having violent thoughts or thoughts of homicide. did not have akathisia today, she reported feeling anxious The patient was alert and oriented to time, place, and person. Assessment: The patient continues to have delusions and today she acknowledged for the first time having audio hallucinations hearing the voice of mom She is showing better behavioral control No thoughts of suicide, no thoughts of violence and no thoughts of homicide Diagnoses: Unspecified psychotic disorder Rule out substance induced psychotic disorder r/o schizophreniform disorder Treatment Plan: Continue same treatment plan Lorazepam 1 MG AT BEDTIME & 1 mg Q4P PRN anxiety Risperidone 1 MG DAILY & 2 MG AT BEDTIME Risperidone 2 MG AT BEDTIME
[2017-11-26 08:35] VITALS: BP 138/68
[2017-11-26 12:09] VITALS: BP 124/61
--- NOTE | 2017-11-26 15:10 | SOCIAL WORKER PROG NOTE PSYCH ---
Social Work Progress Note Progress Note I Richardson Sanchez approached Christelle in the kitchen to check in with her. She reported having stomach pain and holding her stomach. The patient informed nursing and they gave her deejay colt. Christelle had a good night last night and had visitors. The patient acknowledged seeing her parents last night. She discussed living at the apartment with them as an option for when she is discharged. I inquired about her thoughts in regards to employment since last time I spoke with her she mentioned wanting to work somewhere else. 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 She stated her delusional thought that "she is but not to tell anyone because it is a secret." She wanted to share this with her boyfriend when she goes home but is unsure if he would want to keep the baby. She feel supported by her family and her boyfriend's family. I asked her if she had an interest in [facility] for therapy or services and she responded no I am fine. She did say that she is ready to leave. I asked if there was anything she thinks we can do to support her further but she did not. 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 When I asked when registration for that started she said any time. She did mention paying for school is a challenge but she does not like asking others for help. When discussing financial difficulties she got upset. She has been utilizing meditation, reading and art as coping skills here on the unit. She was very engaged and cooperative during the conversation. She was more awake functional this morning.
[2017-11-26 16:09] VITALS: BP 146/67
--- NOTE | 2017-11-26 16:35 | SOCIAL WORKER PROG NOTE PSYCH ---
Social Work Progress Note Progress Note Received a message from Christelle's sister Richardson. She was wondering if Christelle would be coming home this week. I called her back and left a message [phone] stating that Christelle is still experiencing psychotic symptoms and we will be continuing to monitor her symptoms and may be keeping her through 12/02.
[2017-11-26 19:25] VITALS: BP 139/61
[2017-11-27 07:44] VITALS: BP 139/91
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
[2017-11-27 12:16] VITALS: BP 122/77
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
[2017-11-27 16:20] VITALS: BP 130/89
[2017-11-27 20:35] VITALS: BP 134/60
[2017-11-28 09:28] VITALS: BP 126/75
--- NOTE | 2017-11-28 11:30 | CP SOUTH PROGRESS NOTE PSYCH ---
Psych (Inpt) Progress Note Progress Note Include the following elements, when applicable: Involvement in the active treatment of the patient with behavioral observations of the patient and the patient's response to the treatment. Review of the ongoing treatment process in the context of the treatment plan. Indication of how multi-disciplinary staff members are carrying out the treatment plan. Plans for future interventions and recommendations for revision of the treatment plan. Liaison with other physicians/providers. Progress Note: Pt notes that "I'm fine." She was quite perseverative around this stating "I'm fine" several times. She noted that meds were helpful and then immediately stated that they were not. She did not sleep well but does not want changes to meds at this time. Very bizzare, paranoid. Current Medications Sig/Harvey Start time Last Medication Dose Route Stop Time Status Admin Acetaminophen 325 MG .STK-MED ONE 11/27 1800 DC PO 11/27 1801 Acetaminophen 325 MG Q6P PRN 11/17 2115 AC PO Al Hydroxide/Mg 30 ML Q4-6 PRN PRN 11/24 0800 AC Hydroxide PO Calcium Carbonate 500 MG BID PRN 11/17 2130 AC PO Lorazepam 1 MG AT BEDTIME 11/23 2100 AC 11/27 PO 2330 Lorazepam 1 MG Q4P PRN 11/23 1500 AC 11/27 PO 1157 Magnesium Hydroxide 30 ML AT BEDTIME NEED.. 11/24 0800 AC PO Olanzapine 5 MG Q6-PRN PRN 11/27 0800 AC 11/27 PO 0849 Risperidone 2 MG DAILY 11/27 0900 AC 11/27 PO 0853 Risperidone 2 MG AT BEDTIME 11/23 2100 AC 11/27 PO 2330 Vital Signs Date Time Temp Pulse Resp B/P B/P Pulse O2 O2 Flow FiO2 Mean Ox Delivery Rate 11/29 927 98.6 112 126/75 11/27 2034 97.1 98 134/60 11/27 1620 101 130/89 11/27 1216 104 122/77 MSE Appearance: as stated age Speech : nl rate, rhythm, volume and prosody Behavior: cooperative, very guarded Motor: + psychomotor retardation Mood : I' fine Affect : flat, non-labile, irritable, appropriate, constricted Thought process: linear and goal directed but bizzare, appears to be responding to internal stimuli Thought content : + paranoia Perceptions: denied AVHs, denied SI or HI Insight: poor Judgment: poor A/P: Pt with psychosis which is presistent with continued psychotic sx with intermittent medication compliance. Continue current medication regimen, pt refused this morning, RN to try again Encourage integration into the milieu
[2017-11-28 16:02] VITALS: BP 134/76
--- NOTE | 2017-11-28 20:32 | SOCIAL WORKER PROG NOTE PSYCH ---
Social Work Progress Note Progress Note MARIZOL SUNNI [id number] 1995 MARIZOL SUNNI [id number] Pended Authorization # Client Authorization # Type of Request [id number] CONCURRENT Date of Admission/ Start of Services Requested From Submission Date 11/17/2017 11/27/2017 11/28/2017 Level of Service Type of Service Level of Care Type of Care INPATIENT/[facility]
[2017-11-29 08:01] VITALS: BP 130/64
--- NOTE | 2017-11-29 11:07 | CP SOUTH PROGRESS NOTE PSYCH ---
Psych (Inpt) Progress Note Progress Note Include the following elements, when applicable: Involvement in the active treatment of the patient with behavioral observations of the patient and the patient's response to the treatment. Review of the ongoing treatment process in the context of the treatment plan. Indication of how multi-disciplinary staff members are carrying out the treatment plan. Plans for future interventions and recommendations for revision of the treatment plan. Liaison with other physicians/providers. Progress Note: Pt notes that she is "good" today. Very limited engagement. Denies SI or HI. When asked about psychotic systems, her eyes widened, she paused and stared for a considerable amount of time. Did not answer the question. Current Medications Sig/Harvey Start time Last Medication Dose Route Stop Time Status Admin Acetaminophen 325 MG Q6P PRN 11/17 2115 AC PO Al Hydroxide/Mg 30 ML Q4-6 PRN PRN 11/24 0800 AC Hydroxide PO Calcium Carbonate 500 MG BID PRN 11/17 2130 AC PO Lorazepam 1 MG AT BEDTIME 11/23 2100 AC 11/28 PO 2109 Lorazepam 1 MG Q4P PRN 11/23 1500 AC 11/29 PO 0940 Magnesium Hydroxide 30 ML AT BEDTIME NEED.. 11/24 0800 AC PO Olanzapine 5 MG Q6-PRN PRN 11/27 0800 AC 11/27 PO 0849 Risperidone 2 MG DAILY 11/27 0900 AC 11/29 PO 0803 Risperidone 2 MG AT BEDTIME 11/23 2100 AC 11/28 PO 2109 Vital Signs Date Time Temp Pulse Resp B/P B/P Pulse O2 O2 Flow FiO2 Mean Ox Delivery Rate 11/29 0801 99.0 116 130/64 11/28 1602 100 134/76 MSE Appearance: as stated age Speech : nl rate, rhythm, volume and prosody Behavior: cooperative, very guarded Motor: + psychomotor retardation Mood : "fine" Affect : flat, non-labile, irritable, appropriate, constricted Thought process: linear and goal directed but bizzare, appears to be responding to internal stimuli Thought content : + paranoia Perceptions: did not answer questions around psychotic sx or AVHs, denied SI or HI Insight: poor Judgment: poor A/P: Pt with psychosis which is presistent with continued psychotic sx with intermittent medication compliance. Continue current medication regimen, pt is taking once again. Encourage integration into the milieu
[2017-11-29 12:18] VITALS: BP 106/68
[2017-11-29 15:28] VITALS: BP 138/72
[2017-11-29 20:04] VITALS: BP 129/64
[2017-11-30 07:51] VITALS: BP 134/75
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
[2017-11-30 12:29] VITALS: BP 118/67
[2017-11-30 15:55] VITALS: BP 138/69
[2017-12-01 09:23] VITALS: BP 125/83
[2017-12-01] MEDS ORDERED: RISPERDAL2 M1 PO (10:14)
[2017-12-01] MEDS ORDERED: LORAZEPAM1 M1 PO (10:16)
--- NOTE | 2017-12-01 10:23 | Patient Discharge Instructions ---
Psych Discharge Inst General Discharge Information Reason for Admission: Paranoid delusions Psy Discharge Primary Diag+ Unspecified Psychotic DO Summary Tests/Major Procedures No significant abnormalities in patient's lab testing, patient had a negative test, patient had negative VDRL for syphilis screening Patient's urine toxicology was only positive for cannabis Studies Pending at DC: None pending Patient Instructions Contact Information Your Psychiatrist on [facility] was Nancy WINSTON,[place] * If you are experiencing an emergency related to this hospitalization, please call [phone] to contact the treating psychiatrist or the psychiatrist-on- call. * To Request a copy of your medical records, please contact the Medical Records Department at [phone]. * To request results of studies pending at the time of discharge, please call [phone]. * Continue your Medications until directed to stop by your Healthcare provider. General Medication Information Please continue to take your new medications and your continued home medications , unless otherwise indicated on your discharge medication list, or unless directed by your MD or BRIQUETTE MOLDER to stop them. Special Instructions Diet Regular Activity As Tolerated - Tobacco Use Treatment Offered Post DC Medications Offered: Not Applicable Post DC Tobacco Treatment Plan: Not Applicable - EtOH/Drug Use D/O Treatment Offered Post DC Medications Offered: NA-No EtOH/Drug Use D/O Post DC EtOH/SubAbuse [place] Plan: NA-No EtOH/Drug Use D/O Metabolic Screening Patient on a neuroleptic(s) . Enter below results for Hemoglobin A1C, and lipid panel if obtained during the last 365 days. BMI: 24.800 Blood Pressure: 125/83 Laboratory Results From [facility] (If applicable): Lab Cholesterol 144 MG/DL 11/19/17 0635 Cholesterol/HDL Ratio 2 % 11/19/17 0635 HDL Cholesterol 62 mg/dL H 11/19/17 0635 Hemoglobin A1c 5.3 % 11/19/17 0635 LDL Cholesterol, Calc 73 mg/dL 11/19/17 06 Triglycerides 45 mg/dL 11/19/17 06 Advance Directives Does the Patient have Medical Advance Directives No/Refused further info Does Pt have Psychiatric Advance Directives? No/Refused further info Does Patient have a Designated Surrogate Decision Maker: No Information About Psychiatric Advance Directives Provided? Refused Discharge Plan Post Hospital Treatment Plan: [facility]
--- NOTE | 2017-12-01 11:08 | SOCIAL WORKER PROG NOTE PSYCH ---
Social Work Progress Note Progress Note Discussed patient's d/c in team meeting today. We will move forward with d/c. Family is willing to help ensure patient's safety and wellbeing and the home environment may be more suitable for Christelle at this time. Called Richardson (Sister ) and asked her to come pickle sorter Christelle at 1pm. Indegent meds are being requested at the [facility] so patient won't have to pay for them for the first 2 weeks. Informed Richardson of Christelle's follow up appts. at [facility]. I informed Christelle of the above information. She stated she didn't need meds. I reiterated that it was important for her to remain on the medication that she has been taking here. She appeared more guarded with me today. I reflected back how unhappy she looked about the news of going home. She stated "you know why." I told her I did not. She stated "you are trying to deport my family." I told her I was not doing that and that was something I don't get involved with. She didn't seem to trust that. She went on to say that I was trying to deport her family. Asked her if she had any concerns about going home? She said no.
--- NOTE | 2017-12-01 13:38 | CP SOUTH PROGRESS NOTE PSYCH ---
Psych (Inpt) Progress Note Progress Note Treatment team (JANETH, RN, Group/Activities Therapist, Psychiatrist) discussed the pt.'s progress, treatment plan, and aftercare plans. Vital Signs: Vital Signs Date Time Temp Pulse B/P B/P O2 12/01 0923 94 125/83 11/30 1555 100 138/69 Mental Status & Behavior: continues to have paranoid delusions and audio hallucinations denied feeling hopeless or worthless, denied wishing , and denied thoughts of suicide. She denied having violent thoughts or thoughts of homicide. Patient denies feeling depressed and asking to leave The patient was alert and oriented to time, place, and person. no parkinsonian tremors, no dystonia, no akathisia Assessment: continues to have delusions & audio hallucinations No thoughts of suicide, no thoughts of violence and no thoughts of homicide Diagnoses: Unspecified Psychotic Disorder Rule Out substance induced psychotic disorder r/o schizophreniform disorder Treatment Plan Update: D/C Home F/U with [facility]
--- NOTE | 2017-12-01 15:36 | SOCIAL WORKER PROG NOTE PSYCH ---
Social Work Progress Note Faxed Referral(s) Referred To: [facility] Transition of Care Documents sent: Health Summary Faxed to: [facility] Fax #: [phone] Faxed by: Yina Alfaro Date faxed: 12/01/17 Time Faxed: 0810
--- NOTE | 2017-12-03 12:15 | DISCHARGE SUMMARY REPORT-PSYCH ---
Visit Information Visit Dates/Diagnosis' Admission Date: 11/17/17 Discharge Date: 12/01/17 Reason for Admission: Paranoid delusions Psy Discharge Primary Diag: Unspecified Psychotic DO Hospital Course Course Allergies: Coded Allergies: No Known Allergies (11/17/17) Hospital Course/TX Response: Treatment team (JANETH, RN, Group/Activities Therapist, Psychiatrist) discussed the pt.'s progress, treatment plan, and aftercare plans. Vital Signs: Vital Signs Date Time Temp Pulse B/P B/P O2 12/01 0923 94 125/83 11/30 1555 100 138/69 Mental Status & Behavior: continues to have paranoid delusions and audio hallucinations denied feeling hopeless or worthless, denied wishing , and denied thoughts of suicide. She denied having violent thoughts or thoughts of homicide. Patient denies feeling depressed and asking to leave The patient was alert and oriented to time, place, and person. no parkinsonian tremors, no dystonia, no akathisia Assessment: continues to have delusions & audio hallucinations No thoughts of suicide, no thoughts of violence and no thoughts of homicide Diagnoses: Unspecified Psychotic Disorder Rule Out substance induced psychotic disorder r/o schizophreniform disorder Treatment Plan Update: D/C Home F/U with [facility] [place] Discharge HBIPS - Tobacco Use Treatment Offered - EtOH/Drug Use D/O Treatment Offered Metabolic Screening - Screen if on a Neuroleptic Medication - Metabolic screening should include: - Blood Pressure, BMI, Glucose or Hgb A1c, & a - Lipid profile from within the past 365 days. Discharge Instructions General Discharge Information Discharge Diet Regular Discharge Activity As Tolerated Referrals Ordered Referrals [facility] 12/09/17 [address] [place] [address] [facility] intake appt. 12/09/17 12:30pm with Susan Ross [address] [place] [address] Prescriptions Start taking the following new medications: Risperidone (Risperdal) 2 MG TABLET 1 Tablet ORAL TWICE DAILY Qty = 30 No Refills Comments: Last Taken: Time:8am Lorazepam (Lorazepam) 1 MG TABLET 1 Tablet ORAL EVERY 8 HOURS NEEDED as needed for anxiety or insomnia Qty = 45 No Refills Comments: Last Taken:11/29/17 Time:940am Studies Pending at Discharge None pending
== END 2017-12-01 13:41 | DRG 751 ==
LOC: ERH 06:03 → CP SOUTH 17:15 → ERHI 17:15 → ENTRNSPT 21:23 → EDTRNSPT 21:25 → EDTRNSPTSTS 21:25 → CP SOUTH 21:34 → CMPTRNSPT 21:40 → CP SOUTH 11-19 10:24
PROVIDERS: Emergency Medicine; Psychiatry & Neurology Psychiatry
DX: F29 Unspecified psychosis not due to a substance or known physiological condition (principal)
CPT/HCPCS: 36415; 80307; 81003; 81025; 87040; 93005; 93010; 96374; 96375; G0480; J0131